=== PATIENT | female | born 1995 | race Caucasian/White ===

== ENCOUNTER 2018-11-14 14:23 | Emergency (ER) | payer OTHER ==
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
[2018-11-14] MEDS ORDERED: DIPHTH/TETANUS/ACEL. PERTUSSIS IM ONLY ONE (14:45)
--- NOTE | 2018-11-14 15:29 | RADIOLOGY IMAGING REPORT ---
[place] [facility] [place]: Sharan Weldon : 1995 MR: [id number] V: [id number] EXAM DATE: ORDERING PHYSICIAN: RADHA LIZAMA TECHNOLOGIST: Location: [facility] - [place] Patient: Sharan Weldon : 1995 Visit/Account:[id number] Date of Sevice: 11/14/2018 FOOT 3 VIEWS RIGHT Indication: Right foot pain. Comparison: None available. Findings: 3 views of the right foot. Acute mildly displaced fracture of the anterior lateral calcaneus involving the calcaneocuboid joint. No radiopaque foreign body. Otherwise normal mineralization, joint spaces, and alignment. Impression: Acute mildly displaced fracture of the anterior lateral calcaneus involving the calcaneoc uboid joint. Report Dictated By: Radha Walters MD at 11/14/2018 3:21 PM Report E-Signed By: Radha Walters MD at 11/14/2018 3:25 PM WSN:[id number]
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
[2018-11-14] MEDS ORDERED: IBUPROFEN 800 MG TAB PO ONE (16:20)
[2018-11-14 16:26] VITALS: BP 123/78
[2018-11-14] MEDS ORDERED: APAP/HYDROCODONE 325/5 TAB PO ONE (16:35)
[2018-11-14] MEDS ORDERED: ACET/HYDROC 5/325MG TH ER ONLY 2 TAB/BOTTLE PO ONE (16:35)
[2018-11-14] MEDS ORDERED: HYDR-385 PO (16:37)
== END 2018-11-14 17:09 | disposition home or self-care (01) ==
LOC: ER 14:28
DX: S92.021A Displaced fracture of anterior process of right calcaneus, initial encounter for closed fracture (principal); V48.5XXA Car driver injured in noncollision transport accident in traffic accident, initial encounter
CPT/HCPCS: 70450; 72125; 73630; 90471; 90715; 99284; L0172